=== PATIENT | male | born 1950 | race Hispanic/Latino ===

== ENCOUNTER 2017-12-27 13:23 | Day surgery (SDC) | payer MEDICARE ==
[2017-12-27] MEDS ORDERED: NACL 0.9% 1000 ML 1,000 ML ONE (14:10)
--- NOTE | 2017-12-27 14:22 | Anesthesia Day of Surgery ---
Anesthesia Day of Surgery - Day of Surgery Patient Examined: Yes Patient H&P Reviewed: Yes Patient is NPO: Yes
--- NOTE | 2017-12-27 14:22 | Anesthesia Consultation ---
Anesthesia Consult and Med Hx Date of service: 12/27/17 - Airway Anesthetic Teeth Evaluation: Good ROM Head & Neck: Adequate Mental/Hyoid Distance: Adequate Mallampati Class: Class III Intubation Access Assessment: Possibly Difficult - Pulmonary Exam CTA: Yes - Cardiac Exam Cardiac Exam: RRR - Pre-Operative Health Status ASA Pre-Surgery Classification: ASA3 Proposed Anesthetic Plan: General - Pulmonary Hx Smoking: No Hx Sleep Apnea: No (MIRANDA PRE SCREEN HIGH RISK.) - Cardiovascular System Hx Hypertension: Yes (X 10 YRS) Hx Peripheral Vascular Disease: Yes (UNKNOWN PER PT) - Central Nervous System Hx Back Pain: Yes (FROM STONE) - Other Systems Hx Cancer: No
[2017-12-27] MEDS ORDERED: NACL 0.9% 1000 ML 1,000 ML IV SCH (15:00)
[2017-12-27] MEDS ORDERED: DIPRIVAN 10 MG/ML IV ONE (15:49)
[2017-12-27] MEDS ORDERED: ANCEF/STERILE WATER 2 GM/20 ML IV NR (16:00)
--- NOTE | 2017-12-27 16:43 | Short Stay Summary ---
Short Stay Documentation Date of service: 12/27/17 - History H&P: obtained from office - Allergies and Medications Current Medications: Allergies No Known Allergies Allergy (Verified 12/15/17 14:46) Home Medications Medication Instructions Recorded Confirmed Last Taken Type Acetaminophen/Chlorpheniramine 1 tab PO PRN PRN 12/15/17 12/15/17 Unknown History [Coricidin Hbp Cold & Flu] Aspirin/Acetaminophen/Caffeine 1 each PO PRN PRN 12/15/17 12/27/17 12/20/17 09: 00 History [Excedrin Migraine Caplet] Atenolol [Tenormin] 25 mg PO DAILY 12/15/17 12/27/17 12/27/17 09:00 History Cefuroxime [Ceftin] 250 mg PO Q12H 12/15/17 12/27/17 12/26/17 22:00 History Cetirizine HCl [ZyrTEC] 10 mg PO DAILY 12/15/17 12/15/17 Unknown History Cholecalciferol (Vitamin D3) 400 unit PO DAILY 12/15/17 12/27/17 12/26/17 22:00 History [Vitamin D] Cyanocobalamin (Vitamin B-12) 2,500 mcg PO DAILY 12/15/17 12/27/17 12/26/17 09: 00 History [Vitamin B12] Ferrous Gluconate [Iron 256 MG tab] 256 mg PO DAILY 12/15/17 12/15/17 Unknown History HYDROcodone/APAP 5-325 [[place] 1 each PO Q4HR PRN 12/15/17 12/15/17 Unknown History 5/325] Hydrochlorothiazide [HCTZ] 25 mg PO QDAY 12/15/17 12/27/17 12/26/17 09:00 History Lisinopril [Zestril] 40 mg PO DAILY 12/15/17 12/27/17 12/27/17 09:00 History Meclizine [Antivert] 25 mg PO TID PRN 12/15/17 12/27/17 12/26/17 09:00 History Melatonin 10 mg PO QHS 12/15/17 12/27/17 12/26/17 22:00 History Metformin HCl [Metformin HCl ER] 1,000 mg PO BID 12/15/17 12/15/17 Unknown History Multivit-Min/FA/Lycopen/Lutein 1 each PO DAILY 12/15/17 12/27/17 12/23/17 09:00 History [Centrum Silver Tablet] [place]-3/Dha/Epa/Fish Oil [[place] 3 1 each PO DAILY 12/15/17 12/27/17 12/25/17 09: 00 History 500 Softgel] Potassium Citrate [Urocit K 5] 10 meq PO BID 12/15/17 12/27/17 12/26/17 09:00 History Rosuvastatin Calcium [Crestor] 40 mg PO DAILY 12/15/17 12/27/17 12/26/17 22:00 History Sitagliptin Phosphate [Januvia] 100 mg PO DAILY 12/15/17 12/27/17 12/26/17 09: 00 History Tamsulosin [Flomax] 0.4 mg PO QDAY 12/15/17 12/27/17 12/26/17 09:00 History Vitamin E 400 unit PO DAILY 12/15/17 12/27/17 12/24/17 09:00 History amLODIPine [Norvasc] 10 mg PO DAILY 12/15/17 12/27/17 12/27/17 09:00 History Active Medications Cefazolin Sodium (Ancef/Sterile Water 2 Gm/20 Ml) 2 gm IV PREOP NR Stop: 12/27/17 23:59 Sodium Chloride (Nacl 0.9% 1000 Ml) 1,000 mls @ 75 mls/hr IV DIRECT KEILA Last Admin: 12/27/17 14:30 Dose: 75 mls/hr - Brief post op/procedure progress note Date of procedure: 12/27/17 Pre-op diagnosis: left uret stone total approx 20mm length x12; total 1 lg 3 smaller Post-op diagnosis: same Procedure: cysto urs, laser, sbe, dilation comple left stent 628 Anesthesia: GETA Surgeon: MACHELLE ANTON Estimated blood loss: minimal Pathology: list (stone) Specimen disposition: to lab Condition: stable - Hospital course Hospital course: orpacuhome - Disposition Condition at discharge: Good Disposition: DC- TO HOME OR SELFCARE Short Stay Discharge Plan Activity: advance as tolerated Diet: advance as tolerated Follow up with: MACHELLE ANTON MD [Staff Physician] - 7 Days
[2017-12-27] MEDS ORDERED: OMNIPAQUE 300 MG/50 ML (CATH LAB) IV ONE (16:46)
[2017-12-27] MEDS ORDERED: SUBLIMAZE ONE (17:03)
[2017-12-27] MEDS ORDERED: XYLOCAINE MPF 2% ONE (17:03)
[2017-12-27] MEDS ORDERED: ePHEDrine SULFATE ONE (17:48)
[2017-12-27] MEDS ORDERED: NEO SYNEPHRINE/NS Syringe(OR USE) IV ONE (17:58)
[2017-12-27] MEDS ORDERED: DILAUDID IV PRN (18:23)
[2017-12-27] MEDS ORDERED: ZOFRAN IV PRN (18:23)
--- NOTE | 2017-12-27 18:23 | Post Anesthesia Evaluation ---
- Post Anesthesia Evaluation Patient Participated: Yes Airway Patent: Yes Stable Respiratory Function: Yes Nausea/Vomiting: No Temp > 96.8F: Yes Pain Manageable: Yes Adequeate Hydration: Yes Anesthesia Complications: No Block Receding Appropriately: Not Applicable Patient on Ventilator: No
[2017-12-27 21:19] VITALS: BP 148/70
--- NOTE | 2017-12-29 08:01 | Fluoroscopy Report ---
FLUOROSCOPY RETROGRADE UROGRAPHY: FLUOROSCOPY URETER/NEPHROSTOMY DILATATION LEFT: HISTORY: Left ureteral stone. FINDINGS: Fluoroscopy was provided by radiology during retrograde urography by the urologist. 13 fluoroscopic images were captured. The right pyelogram was normal. The left pyelogram demonstrates multiple filling defects in the distal left ureter consistent with mildly obstructing ureteral stones. Per the operative notes, holmium laser was utilized to break up the stones and a grasper was used to extract the stones. Subsequent images demonstrate balloon dilatation of the left ureter and placement of a left ureteral stent which adequately drains the left collecting system on the final image. Please correlate with the procedural report as needed. IMPRESSION: Distal left ureteral stone removal. Left ureteral stent placement.
--- NOTE | 2018-01-25 18:44 | Operative Report ---
PREOPERATIVE DIAGNOSIS: Left ureteral stone, total approximately length is 20 mm x 12 mm, total one large and 3 smaller stones. POSTOPERATIVE DIAGNOSIS: Left ureteral stone, total approximately length is 20 mm x 12 mm, total one large and 3 smaller stones. PROCEDURE: Cystoscopy, ureteroscopy, laser fragmentation, dilation ureteral stent placement 6 x 28. ANESTHESIA: General. SURGEON: Gianfranco Hutson M.D. ESTIMATED BLOOD LOSS: Minimal. SPECIMENS: Stone. DISPOSITION: Stable to the PACU. CLINICAL INDICATIONS: The patient was counseled on risks, RCBA, antibiotics, and SCDs. Had a very large stone burden noted. Knows the difficulties with this. Patient had antibiotics, SCDs. DESCRIPTION OF PROCEDURE: The patient was transferred to OR suite in supine position, anesthesia, dorsal lithotomy, prepped and draped in standard fashion. A 22-Tajik scope was passed, normal penile, bulbar prostatic urethra. Pancystoscopy with 30 and 70-degree lens demonstrated no tumors, lesions, or other abnormalities. Left UO cannulated 8 [place] cone-tipped catheter, contrast injected. Right side demonstrated normal right distal ureter, proximal ureter, renal pelvis calyces. On the left retrograde pyelogram, there was identified under fluoroscopy, a filling defect, a large stone on the prefluoroscopy retrograde. Contrast was injected large filling defect and hydroureter. Glidewire was passed beyond this. 15-Tajik balloon dilator was passed, under fluoroscopic visualization. The ureter was dilated. Next, a rigid scope was passed. A stone was visualized. This was very tedious complicated and difficult due to large stone burden. Holmium laser was used sequentially to target the stone, fragmented this into smaller and smaller pieces, sequentially removing fragments with the triceps forceps and dropped them within the bladder until all the stone was deemed to be gone. Scope was then passed through the side of the stone up to the proximal ureter. No significant large residual stones identified. Scope was slowly brought down. No residual significant stones identified. Wire backloaded on the cystoscope. A 6 x 28 double-J stent was passed over the wire under direct and fluoroscopic visualization. Nice proximal J, nice distal J within the bladder on the left side. Bladder irrigated and drained. Scope removed. Exam under anesthesia, no palpable testicle masses or prostate nodules. The patient was awakened and transferred to PACU in good and stable condition. PLAN: This is a staged future cystoscopy, stent removal in the office. JOB# [id number] ATS/NTS
== END 2017-12-27 19:40 | disposition home or self-care (01) ==
LOC: OR 13:23
PROVIDERS: ATTEND Urology
DX: N20.1 Calculus of ureter (principal); I10 Essential (primary) hypertension; I73.9 Peripheral vascular disease, unspecified; Z79.899 Other long term (current) drug therapy
CPT/HCPCS: 36415; 52325; 52332; 52344; 74420; 74485; 82365; 82962; 84132; C1726; C1758; C1769; C2617; J0690; J1170; J2370; J2704; J3010; J7030; Q9967